=== PATIENT | female | born 1950 | race Caucasian/White ===

== ENCOUNTER → 2016-12-04 | Day surgery (SDC) | payer BC ==
[~2016-12-04] VITALS: Ht 162.6 cm; Wt 76.2 kg
[~2016-12-04] MED LIST: ACETAMINOPHEN 1000 MG/100 ML VIAL IV ONE; AMLO5TAB2 PO; ASPI81TA11 PO; CARV3.12 PO; CIPR-9 PO; DO NOT ADM ANY ANTICOAGULANT DRUGS XX PRN; DOXY50 PO; ESOM1CAP16 PO; HYDR-3533 PO; INSULIN HUMAN REGULAR 1,000 UNITS/10 ML VIAL SQ PRN; IRBE150T15 PO; KETOROLAC TROMETHAMINE 30 MG/ML (IVP) VIAL IV PUSH ONE; KETOROLAC TROMETHAMINE 60 MG/2 ML (IM) VIAL IM ONE; LACTATED RINGER'S 1000 ML IV SCH; METOPROLOL TARTRATE 25 MG TAB PO PRN; MIDAZOLAM HCL 2 MG/2 ML VIAL ONE; ONDANSETRON HCL 4 MG/2 ML VIAL IV PUSH ONE; ONDANSETRON HCL 4 MG/2 ML VIAL IV PUSH PRN; PRAS10TA PO; PRAV20TA2 PO; PROPOFOL 200 MG/20 ML AMP IV ONE; SITA50TA4 PO; SODIUM CHLORID 0.9% 500 ML IV SCH; ZOFR4TAB PO; ePHEDrine/NS 50 MG/5 ML SYR IV ONE; fentaNYL CITRATE 250 MCG/5 ML AMP ONE; oxyCODONE/ACETAMINOPHEN 5 MG/325 MG TAB ONE; oxyCODONE/ACETAMINOPHEN 5 MG/325 MG TAB PO ONE
[2016-12-04 10:13] VITALS: BP 142/79; PULSE 73; RESP 18; TEMP 98.2; O2SAT 98
[2016-12-04 10:25] LABS: AUTOMATED NEUTROPHIL # 4.6 TH/MM3 (1.8-7.7); BASOPHIL # 0.1 TH/MM3 (0-0.2); EOSINOPHIL # 0.3 TH/MM3 (0-0.4); EOSINOPHIL % 3.5 % (0.0-4.0); HEMATOCRIT 40.3 % (35.0-46.0); HEMO FLAGS DIFF FINAL; LYMPH % 29.7 % (9.0-44.0); LYMPHOCYTE # 2.3 TH/MM3 (1.0-4.8); MEAN CELL VOLUME 82.1 FL (80.0-100.0); MEAN CORPUSCULAR HEMOGLOBIN 27.2 PG (27.0-34.0); MEAN CORPUSCULAR HGB CONC 33.1 % (32.0-36.0); MONO % 5.2 % (0.0-8.0); NEUT % 60.6 % (16.0-70.0); PLATELET COUNT 348 TH/MM3 (150-450); RED CELL DISTRIBUTION WIDTH 13.8 % (11.6-17.2); WHITE BLOOD COUNT 7.7 TH/MM3 (4.0-11.0)
[2016-12-04 13:44] VITALS: BP 136/66; PULSE 72; TEMP 98.2; O2SAT 100
[2016-12-04 13:47] VITALS: RESP 18
--- NOTE | 2016-12-05 09:25 | MP ---
cc: AIMEE MCGILL M.D. DATE OF SURGERY: 12/04/2016 PREOPERATIVE DIAGNOSIS: postmenopausal bleeding with a prior episode in 2015 with a benign workup. PROCEDURE PREFORMED: MyoSure dilatation and curettage. SURGEON: Aimee Mcgill MD. ANESTHESIA: General by face mask. FINDINGS: The findings on surgery included two large polyps in the endometrium otherwise normal appearing cavity. ESTIMATED BLOOD LOSS: Blood loss was minimal. COMPLICATIONS: Complications were none. PROCEDURE IN DETAIL After proper consents were obtained, the patient was taken to the operating room where general by face mask anesthesia was applied. She was then placed in the dorsolithotomy position, sterilely prepped and draped and her bladder was drained. At this time a weighted speculum was placed in the vaginal vault. The anterior lip of the cervix was grasped with a single-tooth tenaculum. The uterus was sounded to about 6-7 cm. We then dilated the cervix with Hegar dilators up to about #16. We then placed the MyoSure hysteroscope into the uterine cavity using normal saline as the distending medium. We insufflated and then we able to visualize two polyps coming off of the fundus and then the anterior left wall. We went ahead and performed a MyoSure polypectomy without difficulty. Once we were done the cavity was empty. Hemostasis was assured and suture removed. Counts were correct and the patient was stable to the recovery room. MD JOB Ortiz/erik /2:44 PM /9:16 AM
== END | disposition home or self-care (01) ==
LOC: HSDC 09:11
PROVIDERS: ATTEND Obstetrics & Gynecology
DX: N84.0 Polyp of corpus uteri (principal); N95.0 Postmenopausal bleeding; I10 Essential (primary) hypertension; I25.10 Atherosclerotic heart disease of native coronary artery without angina pectoris; E11.9 Type 2 diabetes mellitus without complications
CPT/HCPCS: 00952; 58558; 85025; 88305; J0131; J1885; J2250; J2405; J3010; J7120

== ENCOUNTER 2017-02-18 09:33 | Emergency (ER) | payer MEDICARE, OTHER ==
[~2017-02-18] VITALS: Ht 162.6 cm; Wt 75.0 kg
[~2017-02-18 09:33] MED LIST changes: -ACETAMINOPHEN 1000 MG/100 ML VIAL IV ONE; -CIPR-9 PO; -DO NOT ADM ANY ANTICOAGULANT DRUGS XX PRN; -HYDR-3533 PO; -INSULIN HUMAN REGULAR 1,000 UNITS/10 ML VIAL SQ PRN; -KETOROLAC TROMETHAMINE 30 MG/ML (IVP) VIAL IV PUSH ONE; -KETOROLAC TROMETHAMINE 60 MG/2 ML (IM) VIAL IM ONE; -LACTATED RINGER'S 1000 ML IV SCH; -METOPROLOL TARTRATE 25 MG TAB PO PRN; -MIDAZOLAM HCL 2 MG/2 ML VIAL ONE; -ONDANSETRON HCL 4 MG/2 ML VIAL IV PUSH ONE; -ONDANSETRON HCL 4 MG/2 ML VIAL IV PUSH PRN; -PRAS10TA PO; -PROPOFOL 200 MG/20 ML AMP IV ONE; -SODIUM CHLORID 0.9% 500 ML IV SCH; -ZOFR4TAB PO; -ePHEDrine/NS 50 MG/5 ML SYR IV ONE; -fentaNYL CITRATE 250 MCG/5 ML AMP ONE; -oxyCODONE/ACETAMINOPHEN 5 MG/325 MG TAB ONE; -oxyCODONE/ACETAMINOPHEN 5 MG/325 MG TAB PO ONE
[2017-02-18 09:35] VITALS: BP 179/84; PULSE 82; RESP 20; TEMP 97.9; O2SAT 95
[2017-02-18 11:43] VITALS: BP 180/85; PULSE 70; RESP 16; O2SAT 98
[2017-02-18 12:06] LABS: AUTOMATED NEUTROPHIL # 11.1 TH/MM3 (1.8-7.7); BASOPHIL # 0.1 TH/MM3 (0-0.2); BASOPHIL % 0.6 % (0.0-2.0); EOSINOPHIL # 0.1 TH/MM3 (0-0.4); EOSINOPHIL % 0.4 % (0.0-4.0); HEMATOCRIT 42.8 % (35.0-46.0); HEMO FLAGS DIFF FINAL; LYMPH % 9.4 % (9.0-44.0); LYMPHOCYTE # 1.2 TH/MM3 (1.0-4.8); MEAN CELL VOLUME 82.3 FL (80.0-100.0); MEAN CORPUSCULAR HEMOGLOBIN 27.5 PG (27.0-34.0); MEAN CORPUSCULAR HGB CONC 33.4 % (32.0-36.0); MONO % 3.2 % (0.0-8.0); NEUT % 86.4 % (16.0-70.0); PLATELET COUNT 326 TH/MM3 (150-450); RED CELL DISTRIBUTION WIDTH 13.4 % (11.6-17.2); WHITE BLOOD COUNT 12.9 TH/MM3 (4.0-11.0)
[2017-02-18 12:06] LABS: BACTERIA, URINE RARE /hpf; BLOOD, URINE TRACE (NEG); COMMENT (UR) CULT NOT INDICATED; CULTURE IF INDICATED CULT NOT INDICATED; GLUCOSE,URINE NEG (NEG); HYALINE CAST, URINE 1 /lpf (RARE); KETONE, URINE 10 mg/dL (NEG); MUCUS URINE FEW /lpf (OCC); NITRITE,URINE NEG (NEG); SQUAMOUS EPITHELIAL CELL URINE 3 /hpf (0-5); URINE COLOR LIGHT-YELLOW (YELLW/STRAW)
[2017-02-18 12:23] LABS: ALT (GPT) 25 U/L (10-53); ANION GAP 7 MEQ/L (5-15); AST (GOT) 17 U/L (15-37); BICARBONATE 27.1 MEQ/L (21.0-32.0); BLOOD UREA NITROGEN 16 MG/DL (7-18); CHLORIDE 103 MEQ/L (98-107); GLOMERULAR FILTRATION RATE 58 ML/MIN (>89); POTASSIUM 4.2 MEQ/L (3.5-5.1); SODIUM (NA) 137 MEQ/L (136-145)
[2017-02-18 12:25] LABS: ALKALINE PHOSPHATASE 120 U/L (45-117); TOTAL BILIRUBIN ADULT 0.4 MG/DL (0.2-1.0)
--- NOTE | 2017-02-18 12:32 | RADRPT ---
EXAM DATE/TIME: 02/18/2017 12:05 [facility] COMPARISON: No previous studies available for comparison. INDICATIONS : Left flank pain today. ORAL CONTRAST: No oral contrast ingested. RADIATION DOSE: 8.16 CTDIvol (mGy) MEDICAL HISTORY : Hypertension. diabetes SURGICAL HISTORY : cardiac stent placement ENCOUNTER: Initial ACUITY: 1 day PAIN SCALE: 6/10 LOCATION: Left flank TECHNIQUE: Volumetric scanning of the abdomen and pelvis was performed. Using automated exposure control and adjustment of the mA and/or kV according to patient size, radiation dose was kept as low as reasonably achievable to obtain optimal diagnostic quality images. FINDINGS: LOWER LUNGS: The visualized lower lungs are clear. LIVER: Homogeneous density without lesion. There is no dilation of the biliary tree. No calcifi ed gallstones. SPLEEN: Normal size without lesion. PANCREAS: Within normal limits. KIDNEYS: The left kidney is significantly abnormal both asymmetrically enlarged with respect to t he left demonstrating diffuse adjacent perinephric fat stranding, dilation of the renal pelvis and pr oximal portion of the ureter. The distal ureter appears normal in caliber but cannot be completely fo llowed within the lower pelvis to to the adjacent soft tissue structures. There are multiple punctate calcific densities identified within the pelvis the majority of which are clearly phleboliths. There is a single punctate density which may represent a distal left ureteral stone, however, given the di sproportionate enlargement of the left kidney and adjacent inflammatory changes this was not likely t he source of the structure. There is also increased haziness is seen adjacent to the left renal vein. ADRENAL GLANDS: Within normal limits. VASCULAR: There is no aortic aneurysm. BOWEL/MESENTERY: The stomach, small bowel, and colon demonstrate no acute abnormality. There is no free intraperitoneal air or fluid. ABDOMINAL WALL: Within normal limits. RETROPERITONEUM: There is no lymphadenopathy. BLADDER: No wall thickening or mass. REPRODUCTIVE: Within normal limits. INGUINAL: There is no lymphadenopathy or hernia. MUSCULOSKELETAL: Within normal limits for patient age. CONCLUSION: Significantly abnormal exam. Given the diffuse haziness adjacent to the left renal ve in as well as the significantly abnormal enlargement of the left kidney and perinephric stranding the patency of the left renal vein should be assessed to exclude renal vein thrombosis as a source of th sumeet changes. If patency cannot be assessed by ultrasound then recommend further evaluation with contr ast-enhanced CT to exclude an obstructing neoplasm as a source for these changes. No definitive renal stone is identified. Mary Thompson MD on February 18, 2017 at 12:24 Board Certified Radiologist. This report was verified electronically.
[2017-02-18] MEDS ORDERED: SODIUM CHLOR 0.9% 1000 ML INJ 1,000 ML IV SCH (12:39)
[2017-02-18] MEDS ORDERED: MORPHINE SULFATE 4 MG/ML INJ IV PUSH ONE (12:45)
[2017-02-18] MEDS ORDERED: ONDANSETRON HCL 4 MG/2 ML VIAL IV PUSH ONE (12:45)
--- NOTE | 2017-02-18 13:20 | PD ---
HPI Chief Complaint: Flank/Kidney Pain Time Seen by Provider: 13:15 Travel History International Travel<30 days: No Contact w/Intl Traveler<30days: No Traveled to known affect area: No History of Present Illness HPI 67-year-old female that presents to the ED for evaluation of left flank pain and pressure on her bladder. Per patient's symptoms started today. She's never had anything like this before. She does tell me that she's had a history of UTIs in the past but she tells me that she's never actually had symptoms and she was I was told that whenever the check her urine that she had a UTI. She was put on different medications for this for some to UTIs and she eventually went to a urologist who told her that apparently she tach she does not have UTIs and will prefer for him to evaluate her before starting treatment for UTIs. Again patient states that she's never actually had symptoms of UTI. She tells me that today the pain became unbearable and she became nauseous but did not vomit. She denies any bowel movement issues. Per patient she is able to urinate but she feels like she has to go more frequently. She states that she feels like there is a pressure. She does tell me that she used to be on blood thinners last year when she had a stent placed in her heart. She no longer takes it as she was taken off this medication. She denies any injuries. She denies any falls. She denies actually vomiting. Per patient the pain seems to be improving as well as the nausea but she was concerned because she's never had pain like that before symptoms with any of her presumptive UTIs in the past. The patient her pain right now is 6 out of 10. No other medical complaints reported. PFSH Past Medical History Hx Anticoagulant Therapy: Yes (ASA OCCASIONALLY) Cancer: No Cardiovascular Problems: Yes (STENT) Diabetes: Yes Endocrine: No Genitourinary: Yes (chronic uti's most recently end of October 2016) Hepatitis: No Hiatal Hernia: No Hypertension: Yes Immune Disorder: No Musculoskeletal: Yes (right knee pain) Neurologic: No Psychiatric: No Reproductive: No Respiratory: No Thyroid Disease: No Past Surgical History Abdominal Surgery: No AICD: No Body Medical Devices: INTEGRETY CARDIAC STENT Cardiac Surgery: Yes (stent placement to RCA MEDTRONIC RCA CORONARY STENT INTEGRITY) Ear Surgery: No Endocrine Surgery: No Eye Surgery: Yes (cosmetic surgery to eyelids 2000) Genitourinary Surgery: No Gynecologic Surgery: No Joint Replacement: No Oral Surgery: No Pacemaker: No Thoracic Surgery: Yes (breast reduction) Other Surgery: Yes (BREAST REDUCTION) Social History Alcohol Use: Yes Tobacco Use: No Substance Use: No Allergies-Medications (Allergen,Severity, Reaction): Coded Allergies: No Known Allergies (Unverified , 02/18/17) Reported Meds & Prescriptions Reported Meds & Active Scripts Active Reported Aspirin EC (Aspirin) 81 Mg Tabdr 81 Mg PO HS Doxycycline Hyclate 50 Mg Cap 50 Mg PO HS Pravastatin 20 Mg Tab 20 Mg PO HS Amlodipine (Amlodipine Besylate) 5 Mg Tab 5 Mg PO HS Carvedilol 3.125 Mg Tab 3.125 Mg PO BID Esomeprazole DR 40 Mg Capdr 40 Mg PO DAILY Irbesartan 150 Mg Tab 150 Mg PO DAILY Janumet Xr (Sitagliptin-Metformin ER) 50-1,000 Mg Tab 2 Tab PO DAILY Review of Systems General / Constitutional: No: Fever, Chills, Weight Gain, Weight Loss, Other Eyes: No: Diploplia, Blurred Vision, Photophobia, Drainage, Redness, Foreign Body Sensation, Pain, Tearing, Blind Spots, Visual changes, Blindness, Other HENT: No: Headaches, Vertigo, Lightheadedness, Sore Throat, Rhinitis, Rhinorrhea, Congestion, Nosebleed, Neck Stiffness, Neck Pain, Masses, Gingival Bleeding, Dental Difficulties, Ear Discharge, Earache, Other Cardiovascular: No: Chest Pain or Discomfort, Palpitations, Irregular Rhythm, Tachycardia, Diaphoresis, Syncope, Dyspnea on exertion, Varicosities, Edema, Cyanosis, Varicosities, Phlebitis, Claudication, Other Respiratory: No: Cough, Shortness of Breath, Wheezing, Sneezing, Orthopnea, Hemoptysis, Stridor, Night Sweats, Pleuritic Pain, Other Gastrointestinal: Positive: Nausea, No: Vomiting, Diarrhea, Abdominal Pain, Hematemesis, Hematochezia, Constipation, Changes in Bowel Habits, Indigestion, Dysphagia, Loss of Appetite, Other Genitourinary: Positive: Urgency, Frequency, Pelvic Pain, Flank Pain, No: Dysuria, Nocturia, Hematuria, Decreased Urinary Output, Oliguria, Hesitancy, Dribbling, Incontinence, Dyspareunia, Discharge, Dysmenorrhea, Menorrhagia, Metorrhagia, Vaginal Bleeding, Other Musculoskeletal: No: Myalgias, Arthralgias, Limited ROM, Weakness, Cramping, Edema, Pain, Atrophy, Other Skin: No Rash, No Itching, No Dryness, No Lumps, No Hives, No Change in Pigmentation, No Change in nails, No Alopecia, No Lesions, No Breast Lumps, No Breast Tenderness, No Breast Swelling, No Other Neurologic: No: Weakness, Dizziness, Syncope, Focal Abnormalities, Coordination Problem, Tremor, Ataxia, Headache, Change in Mentation, Slurred Speech, Paresthesia, Incontinence, Seizures, Sensory Disturbance, Other Psychiatric: No: Anxiety, Depression, Suicidal Ideations, Disorder of Thought, Mood Disorder, Substance Abuse, Homicidal Ideation, Other Endocrine: No: Heat Intolerance, Cold Intolerance, Polyuria, Polydipsia, Other Hematologic/Lymphatic: No: Easy Bruising, Lymph Node Enlargement, Other Physical Exam Narrative GENERAL: SKIN: Warm and dry. HEAD: Atraumatic. Normocephalic. EYES: Pupils equal and round 4 mm reactive to light and accommodation. No scleral icterus. No injection or drainage. ENT: No nasal bleeding or discharge. Mucous membranes pink and moist. Tongue is midline. No uvula deviation. NECK: Trachea midline. No JVD. CARDIOVASCULAR: Regular rate and rhythm. No murmurs, S3, S4. RESPIRATORY: No accessory muscle use. Clear to auscultation. Breath sounds equal bilaterally. GASTROINTESTINAL: Abdomen soft, non-tender, nondistended. Hepatic and splenic margins not palpable. MUSCULOSKELETAL: Extremities without clubbing, cyanosis, or edema. No obvious deformities. Full range of motion of the upper and lower extremities bilaterally. 2+ pulses bilaterally. Mild CVA tenderness noted. NEUROLOGICAL: Awake and alert. No obvious cranial nerve deficits. Motor grossly within normal limits. Five out of 5 muscle strength in the arms and legs. Normal speech. PSYCHIATRIC: Appropriate mood and affect; insight and judgment normal. Data Data Last Documented VS Vital Signs Date Time Temp Pulse Resp B/P Pulse Ox O2 Delivery O2 Flow Rate FiO2 02/18/17 14:03 68 16 150/67 97 Nasal Cannula 02/18/17 09:35 97.9 Orders Urinalysis - C+S If Indicated (02/18/17 11:40) Complete Blood Count With Diff (02/18/17 11:48) Comprehensive Metabolic Panel (02/18/17 11:48) Lipase (02/18/17 11:48) Ct Abd/Pel W/O Iv Contrast (02/18/17 11:48) Iv Access Insert/Monitor (02/18/17 11:48) Ct Abd/Pel W Iv Contrast(Rout) (02/18/17 ) Morphine Inj (Morphine Inj) (02/18/17 12:45) Ondansetron Inj (Zofran Inj) (02/18/17 12:45) Sodium Chlor 0.9% 1000 Ml Inj (Ns 1000 M (02/18/17 12:39) Iohexol 350 Inj (Omnipaque 350 Inj) (02/18/17 13:42) Ceftriaxone Inj (Rocephin Inj) (02/18/17 14:30) Labs Laboratory Tests Test 02/18/17 02/18/17 11:50 11:52 Urine Color LIGHT-YELLOW Urine Turbidity CLEAR Urine pH 6.0 Urine Specific [place] 1.018 Urine Protein TRACE mg/dL Urine Glucose (UA) NEG mg/dL Urine Ketones 10 mg/dL Urine Occult Blood TRACE Urine Nitrite NEG Urine Bilirubin NEG Urine Urobilinogen LESS THAN 2.0 MG/DL Urine Leukocyte Esterase NEG Urine RBC 4 /hpf Urine WBC 1 /hpf Urine Squamous Epithelial 3 /hpf Cells Urine Bacteria RARE /hpf Urine Hyaline Casts 1 /lpf Urine Mucus FEW /lpf Microscopic Urinalysis Comment CULT NOT INDICATED White Blood Count 12.9 TH/MM3 Red Blood Count 5.20 MIL/MM3 Hemoglobin 14.3 GM/DL Hematocrit 42.8 % Mean Corpuscular Volume 82.3 FL Mean Corpuscular Hemoglobin 27.5 PG Mean Corpuscular Hemoglobin 33.4 % Concent Red Cell Distribution Width 13.4 % Platelet Count 326 TH/MM3 Mean Platelet Volume 8.1 FL Neutrophils (%) (Auto) 86.4 % Lymphocytes (%) (Auto) 9.4 % Monocytes (%) (Auto) 3.2 % Eosinophils (%) (Auto) 0.4 % Basophils (%) (Auto) 0.6 % Neutrophils # (Auto) 11.1 TH/MM3 Lymphocytes # (Auto) 1.2 TH/MM3 Monocytes # (Auto) 0.4 TH/MM3 Eosinophils # (Auto) 0.1 TH/MM3 Basophils # (Auto) 0.1 TH/MM3 CBC Comment DIFF FINAL Differential Comment Sodium Level 137 MEQ/L Potassium Level 4.2 MEQ/L Chloride Level 103 MEQ/L Carbon Dioxide Level 27.1 MEQ/L Anion Gap 7 MEQ/L Blood Urea Nitrogen 16 MG/DL Creatinine 0.97 MG/DL Estimat Glomerular Filtration 58 ML/MIN Rate Random Glucose 129 MG/DL Calcium Level 9.5 MG/DL Total Bilirubin 0.4 MG/DL Aspartate Amino Transf 17 U/L (AST/SGOT) Alanine Aminotransferase 25 U/L (ALT/SGPT) Alkaline Phosphatase 120 U/L Total Protein 8.8 GM/DL Albumin 4.4 GM/DL Lipase 102 U/L [facility] Medical Decision Making Medical Screen Exam Complete: Yes Emergency Medical Condition: Yes Medical Record Reviewed: Yes Interpretation(s) CBC & BMP Diagram 02/18/17 11:52 LFTs and lipase within normal limits. Urine shows some red blood cells but no sign of acute infection Last Impressions Abdomen/Pelvis CT 02/18/17 1148 Signed Impressions: Service Date/Time: Saturday, February 18, 2017 12:05 - CONCLUSION: Significantly abnormal exam. Given the diffuse haziness adjacent to the left renal vein as well as the significantly abnormal enlargement of the left kidney and perinephric stranding the patency of the left renal vein should be assessed to exclude renal vein thrombosis as a source of these changes. If patency cannot be assessed by ultrasound then recommend further evaluation with contrast- enhanced CT to exclude an obstructing neoplasm as a source for these changes. No definitive renal stone is identified. Mary Thompson MD CT of the abdomen and pelvis with contrast did show what appears to be no thrombosis but pyelonephritis. Differential Diagnosis Pyelonephritis versus cystitis versus UTI versus cyst versus mass versus kidney stone Narrative Course 67-year-old female that presents to the ED for evaluation of left flank pain. Patient was properly examined and was found to have signs and symptoms which appear to be consistent with pyelonephritis versus kidney stone. At this time. Labs and imaging recommended. Patient is agreeable with plan. Labs and imaging show some blood as well as leukocytosis but CT did not show any sign of kidney stone what appears to be changes concerning for either mass or venous thrombosis of the renal artery. Radiology recommended CT with contrast and/or ultrasound. This was ordered. Patient was still of findings and agrees with plan. Patient was given IV pain medications and antiemetics. CT with contrast showed no evidence of thrombosis but did show what appears to be pyelonephritis. Because of this ultrasound was canceled. From radiology report from radiologist read that there is no sign of any thrombosis and appears to be excluded. Because of this ultrasound was canceled. At this time. Patient was told results. Accommodation is for trial of antibiotics and palpation. Patient is not septic at this time. She does have a level second. Patient was given a dose of ceftriaxone IV here. Patient will be sent home with prescription for Cipro, Lortab and Zofran. Told to take OTC medicines as needed. Drink plenty of fluids. See ED for any worsening symptoms. Follow-up with urologist. I'll questions were answered to the best of my ability. Patient agrees with plan. Diagnosis Primary Impression: Pyelonephritis Patient Instructions: General Instructions, Narcotic given in the ED Additional Instructions: Take medications as prescribed. Do not drink or drive with taking pain medication. Drinking fluids. Follow with urologist. See ED for any worsening symptoms including worsening fever, worsening pain, inability to take medications especially antibiotic. Motrin or Tylenol for pain he can use as well instead of the narcotic medication to help with pain and fever. Med/Other Pt SpecificInfo: Prescription(s) given Scripts Ciprofloxacin (Cipro)500 Mg Mcy763 Mg PO BID 14 Days Prov:Atif Berrios MD 02/18/17 Ondansetron (Zofran)4 Mg Tab4 Mg PO Q6HR PRN (NAUSEA OR VOMITING) #20 TAB Prov:Atif Berrios MD 02/18/17 Hydrocodone-Acetaminophen (Lortab)5-325 Mg Tab1 Tab PO Q6H PRN (PAIN) #12 TAB Prov:Atif Berrios MD 02/18/17 Disposition: 01 DISCHARGE HOME Condition: Stable Josué Mercer Feb 18, 2017 13:20
[2017-02-18] MEDS ORDERED: IOHEXOL 350 MG/ML 10 ML VIAL (for RAD DIAG) IV ONE (13:42)
[2017-02-18 14:03] VITALS: BP 150/67; PULSE 68; RESP 16; O2SAT 97
--- NOTE | 2017-02-18 14:08 | RADRPT ---
EXAM DATE/TIME: 02/18/2017 13:32 [facility] COMPARISON: No previous studies available for comparison. INDICATIONS : Left sided flank pain, nausea and painful urination for one day. IV CONTRAST: 95 cc Omnipaque 350 (iohexol) IV ORAL CONTRAST: No oral contrast ingested. RADIATION DOSE: 9.96 CTDIvol (mGy) MEDICAL HISTORY : Cardiovascular disease. Hypertension. Diabetes mellitus type 2. SURGICAL HISTORY : None. ENCOUNTER: Initial ACUITY: 1 day PAIN SCALE: 4/10 LOCATION: Left flank TECHNIQUE: Volumetric scanning of the abdomen and pelvis was performed. Using automated exposure control and ad justment of the mA and/or kV according to patient size, radiation dose was kept as low as reasonably achievable to obtain optimal diagnostic quality images. FINDINGS: LOWER LUNGS: The visualized lower lungs are clear. LIVER: Homogeneous density without lesion. There is no dilation of the biliary tree. No calcified gallston es. SPLEEN: Normal size without lesion. PANCREAS: Within normal limits. KIDNEYS: The left kidney appears mildly enlarged with respect to the right with significant adjacent perinephr ic fluid. There is normal enhancement of the kidney and normal enhancement of the left renal vein exc luding left renal vein thrombosis. There is mild dilation of the left ureter without evidence of obst ructing stone. These findings are suggestive of pyelonephritis. The right kidney is unremarkable. ADRENAL GLANDS: Within normal limits. VASCULAR: There is no aortic aneurysm. BOWEL/MESENTERY: The stomach, small bowel, and colon demonstrate no acute abnormality. There is no free intraperitone al air or fluid. ABDOMINAL WALL: Within normal limits. RETROPERITONEUM: There is no lymphadenopathy. BLADDER: No wall thickening or mass. REPRODUCTIVE: Within normal limits. INGUINAL: There is no lymphadenopathy or hernia. MUSCULOSKELETAL: Within normal limits for patient age. CONCLUSION: No evidence of left renal vein thrombosis or obstructing stone or lesion. Given the significant adjac ent perinephric stranding these findings are suggestive of pyelonephritis.. Mary Thompson MD on February 18, 2017 at 13:59 Board Certified Radiologist. This report was verified electronically.
[2017-02-18] MEDS ORDERED: HYDR-3533 PO (14:26)
[2017-02-18] MEDS ORDERED: CIPR-9 PO (14:26)
[2017-02-18] MEDS ORDERED: ZOFR4TAB PO (14:26)
[2017-02-18] MEDS ORDERED: cefTRIAXone INJ 1,000 MG in SODIUM CHLORIDE 0.9% INJ 100 ML IV ONE (14:30)
[2017-02-18 15:47] VITALS: BP 158/73
== END 2017-02-18 15:56 | disposition home or self-care (01) ==
LOC: NEPE 09:33
DX: N12 Tubulo-interstitial nephritis, not specified as acute or chronic (principal); I10 Essential (primary) hypertension; E11.9 Type 2 diabetes mellitus without complications; Z79.84 Long term (current) use of oral hypoglycemic drugs
CPT/HCPCS: 74176; 74177; 80053; 81001; 83690; 85025; 96365; 99284; J0696; J7030; Q9967